=== PATIENT | female | born 2000 | race African-American/Black ===

== ENCOUNTER 2020-08-13 05:23 | Observation (INO) ==
[2020-08-13] MEDS ORDERED: BUTORPHANOL 2 MG/ML VIAL IV PRN (05:38)
[2020-08-13] MEDS ORDERED: ACETAMINOPHEN 325 MG TABLET PO PRN (05:38)
[2020-08-13] MEDS ORDERED: MEPERIDINE 50 MG/1 ML VIAL IM PRN (05:38)
[2020-08-13] MEDS ORDERED: miSOPROStoL 200 MCG TABLET VAG SCH ×2 (06:00→15:00)
[2020-08-13 06:09] LABS: Basophils % 0.4 % (0.0-0.8); Eosinophils # 0.3 10*3/uL (0.0-0.87); Hematocrit 35.6 VOL% (35.7-47.0); Hemoglobin 11.9 GM/DL (12.0-16.0); Immature Granulocytes % 0.2 %; Immature Granulocytes Absolute 0.01 #; Lymphocytes # 1.9 10*3/uL (1.4-4.0); Lymphocytes % 37.6 % (21.3-54.2); Mean Corpuscular HGB Conc 33.4 GM/DL (32-36); Mean Corpuscular Volume 80.4 FL (87-102); Mean Platelet Volume 9.8 FL (9.6-12.0); Monocytes % 6.1 % (1.7-12.7); Neutrophils % 50.7 % (38.7-73.9); Platelet Count 225 T/CUMM (130-400); Red Blood Count 4.43 MC/CUMM (3.8-5.5); Red Cell Distribution Width 12.2 % (9.3-17.3); White Blood Count 5.1 T/CUMM (4-12)
[2020-08-13] MEDS: LACTATED RINGERS 1,000 ML IV SCH ×2 (06:10→12:27)
[2020-08-13 06:30] LABS: Alanine Aminotransferase 29 U/L (13-56); Albumin 3.2 G/DL (3.4-5.0); Alkaline Phosphatase 52 U/L (45-117); Aspartate Amino Transferase 15 U/L (0-37); Bilirubin,Total < 0.39 MG/DL (0.2-1.0); Blood Urea Nitrogen 3 MG/DL (7-18); Calcium 8.9 MG/DL (8.5-10.1); Estimated Glom Filtration Rate 158 ML/MIN; Glucose 82 MG/DL (74-106); Osmolality,Calculated 268.8 MOS/KG (273-304); Total Protein 7.7 G/DL (6.4-8.3)
[2020-08-13] MEDS: ONDANSETRON 4 MG/2 ML VIAL IV PRN (11:00)
[2020-08-13] MEDS: MEPERIDINE 50 MG/1 ML VIAL IV PRN (11:03)
[2020-08-13] MEDS ORDERED: NALOXONE 0.4 MG/ML VIAL IV PRN (18:05)
[2020-08-13] MEDS ORDERED: HYDROmorphone PCA 30 MG/30 ML SYRINGE IV SCH (19:00)
[2020-08-13] MEDS ORDERED: OXYTOCIN/LR 20 UNIT/1,000 ML BAG IV ONE ×2 (22:30→22:33)
[2020-08-14] MEDS ORDERED: miSOPROStoL 200 MCG TABLET RECTAL ONE (00:32)
[2020-08-14] MEDS ORDERED: miSOPROStoL 200 MCG TABLET ONE (00:35)
[2020-08-14] MEDS: ONDANSETRON 4 MG/2 ML VIAL IV PRN (02:33)
[2020-08-14] MEDS: MEPERIDINE 50 MG/1 ML VIAL IV PRN (02:33)
[2020-08-14] MEDS: LACTATED RINGERS 1,000 ML IV SCH (02:35)
[2020-08-14] MEDS ORDERED: OXYTOCIN/LR 20 UNIT/1,000 ML BAG IV ONE ×2 (03:05→07:31)
[2020-08-14] MEDS: OXYTOCIN/LR 20 UNIT/1,000 ML BAG IV PRN ×3 (03:10→10:05)
[2020-08-14] MEDS ORDERED: SODIUM CHLORIDE 0.9% 1,000 ML IV PRN (06:09)
[2020-08-14] MEDS ORDERED: LIDOCAINE 2% 5 ML VIAL ONE (06:32)
[2020-08-14] MEDS ORDERED: propofoL 200 MG/20 ML VIAL IV ONE (06:32)
[2020-08-14] MEDS ORDERED: ONDANSETRON 4 MG/2 ML VIAL ONE (06:32)
[2020-08-14] MEDS ORDERED: fentaNYL 100 MCG/2 ML VIAL ONE (06:33)
[2020-08-14] MEDS ORDERED: MIDAZOLAM 2 MG/2 ML VIAL ONE (06:33)
[2020-08-14] MEDS ORDERED: FAMOTIDINE 20 MG/2 ML VIAL IV ONE (06:33)
[2020-08-14] MEDS ORDERED: CITRIC ACID/SODIUM CITRATE 30 ML UDCUP PO ONE (06:33)
[2020-08-14] MEDS ORDERED: METOCLOPRAMIDE 10 MG/2 ML VIAL IV ONE (06:34)
[2020-08-14] MEDS ORDERED: ceFAZolin 2,000 MG in PREMIX 1 EACH IV ONE (06:35)
[2020-08-14] MEDS ORDERED: PHENYLEPHRINE 1 MG/10 ML SYRINGE IV ONE (07:03)
[2020-08-14] MEDS ORDERED: BENZOCAINE 20%/MENTHOL 0.5% SPRAY 56 GM CAN TOP PRN (07:31)
[2020-08-14] MEDS ORDERED: LANOLIN 50% CREAM 0.3 OZ TUBE TOP PRN (07:31)
[2020-08-14] MEDS ORDERED: BISACODYL 10 MG SUPP RECTAL PRN (07:31)
[2020-08-14] MEDS ORDERED: MEASLES/MUMPS/RUBELLA VACCINE 0.5 ML VIAL SUBCUT ONE (07:31)
[2020-08-14] MEDS ORDERED: DIPH/TET/ACEL PERT BOOSTER VACCINE 0.5 ML VIAL IM ONE (07:31)
[2020-08-14] MEDS ORDERED: IBUPROFEN 800 MG TABLET PO PRN (07:31)
[2020-08-14] MEDS ORDERED: ONDANSETRON 4 MG/2 ML VIAL IV PRN (07:31)
[2020-08-14] MEDS ORDERED: ACETAMINOPHEN 325 MG TABLET PO PRN (07:31)
[2020-08-14] MEDS ORDERED: HYDROCORTISONE 2.5% RECTAL CREAM 30 GM TUBE TOP PRN (07:31)
[2020-08-14] MEDS ORDERED: RHO(D) IMMUNE GLOBULIN 300 MCG SYRINGE IM ONE ×2 (07:31→10:47)
[2020-08-14] MEDS ORDERED: oxyCODONE/ACETAMINOPHEN 5-325 MG TABLET PO PRN ×2 (07:31)
[2020-08-14] MEDS ORDERED: WITCH HAZEL PADS 100/JAR TOP PRN (07:31)
[2020-08-14] MEDS ORDERED: SEVOFLURANE 1 UNIT/15 MINUTE INH ONE (07:38)
[2020-08-14] MEDS ORDERED: DOCUSATE SODIUM 100 MG CAPSULE PO SCH (09:00)
[2020-08-14 10:51] LABS: Hematocrit 17.9 VOL% (35.7-47.0)
[2020-08-14 16:00] VITALS: BP 79/46
[2020-08-14 16:37] LABS: Hematocrit 26.2 VOL% (35.7-47.0); Hemoglobin 8.7 GM/DL (12.0-16.0)
[2020-09-01 14:05] LABS: Reason for Referral SEE COMMENTS; Source Fetal
== END 2020-08-14 18:10 | disposition home or self-care (01) | DRG 544 ==
LOC: N.LDOUT 05:23 → N.LD 05:27 → INTOOBSV 05:38 → N.OB 08-14 08:05
PROVIDERS: ADMIT Specialist; ATTEND Specialist